=== PATIENT | male | born 1990 | race Caucasian/White ===

== ENCOUNTER 2022-08-24 03:00 | Emergency (ER) | payer OTHER ==
[~2022-08-24] VITALS: Ht 175.3 cm; Wt 86.6 kg
[2022-08-24] MEDS ORDERED: CYCLOBENZAPRINE10 MG PO (04:30)
[2022-08-24] MEDS ORDERED: ULTRAM50 MG PO (04:30)
--- OUTSIDE RECORDS SUMMARY | 2022-08-24 05:07 | XMS ---
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 [facility] has no Care Guidelines for this patient. Alpesh VISIT COUNT (12 MO.) 1 [facility] 1 [facility] TOTAL 2 NOTE: Visits indicate total known visits. ED/C VISIT TRACKING (12 MO.) [facility] COMPLAINT: - LOWER BACK AND LEG PAIN 08/24/2022 00:17 [facility] [place] TYPE: Emergency COMPLAINT: - BACK AND ANKLE PAIN DIAGNOSES: - BACK AND ANKLE PAIN INPATIENT VISIT TRACKING (12 MO.) No inpatient visits to display in this time frame [email or web address]
== END 2022-08-24 04:45 | disposition home or self-care (01) ==
LOC: ED 03:00
DX: M54.42 Lumbago with sciatica, left side (principal); G89.29 Other chronic pain; J45.909 Unspecified asthma, uncomplicated; Z79.899 Other long term (current) drug therapy
CPT/HCPCS: 96372; 99283; A9270; J1885